=== PATIENT | female | born 1960 | race Caucasian/White ===

== ENCOUNTER 2024-07-12 09:06 | Emergency (ER) | payer BC, SELFPAY ==
[2024-07-12 09:15] VITALS: BP 156/104; PULSE 88; RESP 16; TEMP 36.7; O2SAT 99; BMI 29.0
--- NOTE | 2024-07-12 09:27 | ECG_ITS ---
APPROVED REPORT Exam: Resting ECG HR:67 bpm ECG Measurements Heart Rate 67 AXES NC 157 P 61 QRSd 86 QRS 61 QT 385 T 53 QTc 400 Conclusion Sinus rhythm Electronically signed by : SANDEEP JAIN, 07/13/2024 13:24:11
--- NOTE | 2024-07-12 09:43 | ED_ITS ---
Discharge Plan Disposition Patient Disposition: Home, Self-Care Prescriptions Prescriptions: New famotidine [Pepcid] 20 mg tablet 20 mg PO BID 42 Days Qty: 84 0RF No Action multivitamin [Multi-Vitamin] Tablet 1 tab PO DAILY lisinopril 10 mg Tablet 10 mg PO DAILY Referrals Follow up/Referrals: Reg Wan MD [Primary Care Provider] - See instructions Activity Restrictions/Add. Instructions Additional Instructions/Restrictions: Call your family doctor to establish care for this visit to the emergency department and schedule follow-up within 48 hours to ensure improvement. If you have any worsening of your condition or any other concerning signs or symptoms, return to the emergency department or your primary care doctor for further evaluation. Pepcid twice daily for 2-6 weeks. If you continue to have pain, talk to your family doctor about starting proton pump inhibitor and gastroenterology for upper endoscopy. Clinical Impressions Clinical Impression: Abdominal pain Instructions Patient Instructions: DI for Acute Abdominal Pain Print Language Print Language: Trinidadian Discharge ED Provider: Jameson Devi General Adult HPI General Chief complaint: Abdominal Pain Stated complaint: Abd Pain R side and back Time Seen by Provider: 07/12/24 09:19 Mode of Arrival: Ambulatory Source of Information: Patient Limitations: No Limitations Description of Symptoms (Recalled from ER Triage Doc. by RN): Pt. complains of right upper quadrant pain that radiates around to her back and shoulder. She states it has been on and off for the last 3 days. She rates the pain 6/10 and states it worsens with eating and drinking. She has tried antiacids and they have not provided any relief History of Present Illness HPI narrative: Please note that above description of symptoms, in this electronic medical record under categorization of recalled from ER triage doctor by RN are reflective of an initial nursing assessment, however, is not reflective of my full history and physical exam that was personally taken and clarified. Consequentially, this preceding description of symptoms, which may include the patient's categorized chief complaint in the EMR, do not reflect my personal clinical impression, and the ultimate description of history of present illness and patient stated complaints should be deferred to this section of the note. Unless stated otherwise or congruent with this section of the note, additional signs, symptoms, or incongruence should be interpreted as inaccurate with my clinical impression. Related Data Home Medications ?Medication ?Instructions ?Recorded ?Confirmed lisinopril 10 mg tablet 10 mg PO DAILY 07/12/24 07/12/24 multivitamin 1 tab PO DAILY 07/12/24 07/12/24 Previous Rx's ?Medication ?Instructions ?Recorded famotidine 20 mg tablet (Pepcid) 20 mg PO BID 6 weeks #84 tabs 07/12/24 Allergies Allergy/AdvReac Type Severity Reaction Status Date / Time Sulfa (Sulfonamide Allergy Verified 07/12/24 09:22 Antibiotics) [facility] Disclaimer: The information contained in this section may have been updated after the patient was seen, as this information can be updated by other users. Medical History (Updated 07/12/24 @ 12:28 by Jameson Devi MD) Arthritis Plantar fasciitis Hypertension Surgical History (Updated 07/12/24 @ 09:21 by Nathaly Vazquez RN) H/O arthroscopy of left knee History of section Family History (Updated 07/12/24 @ 09:21 by Nathaly Vazquez RN) Other No significant family history Social History (Updated 07/12/24 @ 09:21 by Nathaly Vazquez RN) Smoking Status: Never smoker alcohol intake: current current occupational status: employed Travel in the last 8 weeks: None ROS Obtained: Yes All systems reviewed & no additional complaints except as documented Physical Exam General General appearance: alert Head Head exam: atraumatic and normocephalic Eye Eye exam: Present normal appearance, PERRL and EOMI Neck Neck exam: Present normal inspection, full ROM and trachea midline Respiratory Respiratory exam: Absent respiratory distress, wheezes, stridor, accessory muscle use or prolonged expiratory phase Cardiovascular Cardiovascular exam: Present regular rate, normal rhythm and other (Pulses equal symmetric in upper and lower extremities) Abdominal Exam Abdominal exam: Present soft; Absent distention, tenderness, guarding, rebound, rigidity, Harvey's sign, Rovsing's sign, tenderness at McBurney's Point or pulsatile mass Extremities Exam Extremities exam: Absent edema Neurological Exam Neurological exam: Present alert, oriented X3 and CN II-XII intact; Absent motor sensory deficit Skin Skin exam: Present warm, dry and rash; Absent diaphoresis or erythema Medical Decision Making Medical Records Medical records reviewed: Yes I reviewed the patient's medical records. [place] Inquiry Pt receiving controlled substance: No [place] was queried for this patient: No Vital Signs: 07/12/24 09:15 07/12/24 10:00 07/12/24 11:40 Temperature 98.0 F Temperature Source Oral Pulse Rate 64 Pulse Rate [Right Brachial] 88 Respiratory Rate 16 Blood Pressure 171/85 H 131/81 Blood Pressure [Right Arm] 156/104 H Blood Pressure Mean 113 Blood Pressure Mean [Right Arm] 121 Blood Pressure Source [Right Arm] Automatic Cuff Blood Pressure Position [Right Arm] Sitting 02 Sat by Pulse Oximetry 99 99 Oxygen Delivery Method Room Air 07/12/24 12:00 Temperature Temperature Source Pulse Rate 62 Pulse Rate [Right Brachial] Respiratory Rate Blood Pressure 145/71 H Blood Pressure [Right Arm] Blood Pressure Mean Blood Pressure Mean [Right Arm] Blood Pressure Source [Right Arm] Blood Pressure Position [Right Arm] 02 Sat by Pulse Oximetry 100 Oxygen Delivery Method Lab Data Lab Results 07/12/24 09:25: WBC 3.9 L, RBC 4.71, Hgb 13.9, Hct 42.4, MCV 89.9, MCH 29.4, MCHC 32.7, RDW 13.9, Plt Count 182, MPV 8.4, Neut % (Auto) 60.4, Lymph % (Auto) 30.3, [place] % (Auto) 6.3, Eos % (Auto) 2.2, Baso % (Auto) 0.8, Neut # (Auto) 2.4, Lymph # (Auto) 1.2, [place] # (Auto) 0.3, Eos # (Auto) 0.1, Baso # (Auto) 0.0, Sodium 137, Potassium 3.8, Chloride 107, Carbon Dioxide 28, Anion Gap 5.8, BUN 15, Creatinine 0.70, Estimated Creat Clear 75, Estimated GFR 85, Est GFR ( Amer) 103, Glucose 111 H, Calcium 9.2, Total Bilirubin 0.7, AST 42 H, ALT 41, Alkaline Phosphatase 78, Troponin I < 0.01, Total Protein 6.9, Albumin 4.1, Globulin 2.8, Albumin/Globulin Ratio 1.5, Lipase 73 07/12/24 09:25 07/12/24 09:25 Orders (Tests/Meds): ED MEDICATIONS Generic Name Dose Route Start Last Admin Trade Name Freq PRN Reason Stop Dose Admin Sodium Chloride 8 ml 07/12/24 09:38 Sodium Chloride 0.9% 10ml Vial IV 08/11/24 09:37 NEEDED PRN dilute pepcid Sodium Chloride 10 ml 07/12/24 10:59 07/12/24 11:01 Sodium Chloride 0.9% 10ml Syr (Rad Only) IV 08/11/24 10:58 10 ml NEEDED PRN Administration Maintain IV Site Discontinued Medications Generic Name Dose Route Start Last Admin Trade Name Yen PRN Reason Stop Dose Admin Famotidine 20 mg 07/12/24 09:38 07/12/24 09:44 Famotidine 20mg/2ml Vial IV 07/12/24 09:39 20 mg ONCE ONE Administration Iopamidol 75 ml 07/12/24 10:59 07/12/24 11:01 Iopamidol-370 (76%);100ml Bottle IV 07/12/24 11:00 75 ml ONCE ONE Administration Ketorolac Tromethamine 15 mg 07/12/24 09:38 07/12/24 09:44 Ketorolac 30mg/Ml Vial IV 07/12/24 09:39 15 mg ONCE ONE Administration ORDERS Category Date Time Status CT abdomen pelvis w con Stat Cat Scan 07/12/24 10:53 Taken POCUS Point of Care (ER Only) Stat Exams 07/12/24 09:38 Completed CBC w/Auto Diff [Complete Blood Count Auto Diff] Stat Lab 07/12/24 09:25 Completed CMP [Comprehensive Metabolic Panel] Stat Lab 07/12/24 09:25 Completed Lipase Stat Lab 07/12/24 09:25 Completed Trop I [Troponin I] Stat Lab 07/12/24 09:25 Completed Troponin I Q3H Lab 07/12/24 12:45 Ordered Troponin I Q3H Lab 07/12/24 15:45 Ordered UA [Urinalysis and Microscopic] Stat Lab 07/12/24 11:40 Received EKG Request [ECG Request] Stat Y 07/12/24 09:38 Ordered Medical Decision Narrative: 64-year-old female history of hypertension presenting with epigastric pain. Patient states that she has been having right upper quadrant/epigastric pain in the last 3 days. It is associated with food. She states that every few bites of drinks she takes, she has epigastric/right upper quadrant pain that radiates backward to her right shoulder blade. Denies vomiting, but has been nauseated. No constipation, but has had looser stools than usual without blood, melena, or mucus. Made appointment with her production support engineer, cannot get in for about 8 weeks. She states that she has not been running fevers, had unintended weight loss, chest pain, shortness of breath, overlying skin changes or rash. She does note that she got the Shingrix vaccine last week and has had itching over the site enough that it actually woke her up from sleep last night. She did have shingles in this dermatologic distribution a few years ago after interpersonal stressor. History was obtained via conversation with patient. On arrival, patient hemodynamically stable, alert, oriented x4, appropriate, GCS 15, moving all extremities spontaneously, pupils equal and reactive to light. Full physical exam performed and significant for very well-appearing female who is in no acute distress. Cardiopulmonary exam within normal limits. Patient's abdomen soft, nontender, nondistended. Negative Harvey sign. Negative flank tenderness. No overlying skin changes. No right lower quadrant tenderness, unremarkable physical exam overall. Differential includes cholecystitis, gastritis, pancreatitis, nephrolithiasis, UTI, vaccine associated reaction, zoster, aortic pathology, among others. Patient placed on continuous cardiac monitoring and continuous pulse ox with initial blood pressure 156/104, heart rate 88, saturation 99% on room air. Independent interpretation of EKG shows sinus rhythm 67 beats a minute without ST or T wave changes concerning for acute ischemia. [place] 157, QRS 86, QTc 400. [place] normal.. Patient was given Toradol, Pepcid for symptomatic management and correction of underlying abnormalities. Workup independently interpreted and significant for nonactionable CBC or chemistry. Lipase negative. Troponin negative. Bedside [id number] ultrasound negative for any right upper quadrant pathology. Normal gallbladder. On independent interpretation of imaging, no acute intra-abdominal pathology. See radiology read for full review of final results. On reevaluation, patient's symptoms under control with Pepcid and Toradol. Given patient presentation, workup, history, this most likely represents PUD versus passed gallstone, among others. Because in no acute distress and very well-appearing, deemed appropriate for outpatient management with PCP follow-up. Because patient at baseline without signs or symptoms of clinical decompensation, deemed appropriate for discharge. Results were relayed to patient who voiced understanding and were agreeable to outpatient management and follow up. I discussed my clinical impression with patient and answered all questions. At this time, the evidence for any other entities in the differential is insufficient to warrant any further testing or ED observation. This was explained as well. Advisory was given that persistent or worsening symptoms require further evaluation. I confirmed the understanding of this discussion. Office Electrician disclaimer Much of this encounter note is an electronic assistant clinical director spoken language to printed text. Electronic assistant clinical director of the spoken language may permit errors. Although I have reviewed the note, some errors may still exist. Procedures Limited Ultrasound Indication:: Limited RUQ ultrasound Indication: Abdominal pain Identified structures: -Gallbladder -Gallbladder wall -Common bile duct -Liver Findings: Sonographic Harvey sign: Absent Gallstones: Absent Sludge: Absent Pericholecystic fluid: Absent Maximal GB wall thickness (mm) (normal is </= 3mm): Normal Common bile duct width (mm) (normal is </= 6mm): Normal Gallbladder width (cm) (normal is < 4cm): Normal Gallbladder length (cm) (normal is < 10cm): Normal Impression: Normal right upper quadrant ultrasound with normal gallbladder Images were saved to permanent archive The study was technically adequate CPT 53529-11 This study was performed by me, and I personally interpreted all images/videos. Based on my clinical judgement, these images were adequate and did not necessitate further ultrasound imaging. Critical Care Critical Care Time Critical Care Time: No
[2024-07-12] MEDS: KETOROLAC 30MG/ML VIAL 15 MG IV (09:44)
[2024-07-12] MEDS: FAMOTIDINE 20MG/2ML VIAL 20 MG IV (09:44)
[2024-07-12 09:45] LABS: Basophils % 0.8 % (0.1-2.0); Eosinophils # 0.1 K/mm3 (0.0-0.4); Eosinophils % 2.2 % (0.1-12.0); Hematocrit 42.4 % (37.0-47.0); Hemoglobin 13.9 g/dL (12.2-16.2); Lymphocytes # 1.2 K/mm3 (0.7-4.5); Lymphocytes % 30.3 % (10-50); Mean Corpuscular HGB Conc 32.7 g/dL (31.8-35.4); Mean Corpuscular Hemoglobin 29.4 pg (27.0-31.2); Mean Corpuscular Volume 89.9 fl (81-99); Mean Platelet Volume 8.4 fl (7.4-10.4); Monocytes # 0.3 K/mm3 (0.1-1.0); Monocytes % 6.3 % (1.7-9.3); Neutrophils # 2.4 K/mm3 (1.8-7.8); Neutrophils % 60.4 % (37.0-80.0); Platelet Count 182 K/mm3 (142-424); Red Blood Count 4.71 M/mm3 (4.20-5.40); Red Cell Distribution Width 13.9 % (11.5-17.5); White Blood Count 3.9 K/mm3 (4.8-10.8)
[2024-07-12 10:00] VITALS: BP 171/85
[2024-07-12 10:02] LABS: Alanine Aminotransferase 41 U/L (12-78); Albumin Level 4.1 g/dl (3.5-5.0); Albumin/Globulin Ratio 1.5 (1.1-1.8); Alkaline Phosphatase 78 U/L (38-126); Anion Gap 5.8 mEq/L (5-15); Aspartate Amino Transferase 42 U/L (14-36); Bilirubin,Total 0.7 mg/dl (0.2-1.3); Blood Urea Nitrogen 15 mg/dl (7-17); Calcium 9.2 mg/dl (8.4-10.2); Carbon Dioxide 28 mmol/L (22.0-30.0); Chloride 107 mmol/L (98-107); Creatinine Clearance Estimated 75 mL/min (50-200); Estimated Glomerular Filt Rate 85 ml/min (>60); GFR (African American) 103 ML/MIN (>60); Globulin 2.8 g/dL (1.3-3.2); Glucose 111 mg/dl (74-100); Lipase 73 U/L (23-300); Potassium 3.8 mmoL/L (3.5-5.1); Sodium 137 mmol/L (136-145); Total Protein,Serum 6.9 g/dl (6.3-8.2)
[2024-07-12 10:19] LABS: Troponin I < 0.01 ng/ml (0.00-0.034)
--- NOTE | 2024-07-12 10:53 | CT_ITS ---
FINAL REPORT TECHNIQUE: After the administration of intravenous contrast, axial images were obtained through the abdomen and pelvis by computed tomography. This study was performed with technique to keep radiation doses as low as reasonably achievable, (ALARA). Individualized dose reduction techniques using automated exposure control or adjustment of the MA and/or KV according to the patient's size were employed. CLINICAL HISTORY: RUQ pain to right shoulder pain, neg US FINDINGS: Abdomen: The lung bases are clear. The liver is normal in size and attenuation. The spleen and gallbladder are unremarkable. The adrenals are normal. The pancreas is unremarkable. The kidneys enhance appropriately. The aorta is normal in caliber. There is no free fluid or adenopathy. Pelvis: The appendix is normal. The urinary bladder is unremarkable. There is no free fluid or adenopathy. IMPRESSION: No acute intra-abdominal process. Reviewed, Interpreted and Dictated by Dwayne Elias III, MD Transcribed by Tatyana Mejía Authenticated and [facility]
[2024-07-12] MEDS: SODIUM CHLORIDE 0.9% 10ML SYR (RAD ONLY) 10 ML IV (11:01)
[2024-07-12] MEDS: IOPAMIDOL-370 (76%);100ML BOTTLE 75 ML IV (11:01)
[2024-07-12 11:40] VITALS: BP 131/81; PULSE 64; O2SAT 99
--- NOTE | 2024-07-12 11:42 | PC.NURSE ---
rounded on pt, no needs at this time
[2024-07-12 11:45] LABS: Microscopic, Urine URINE MICROSCOPIC (MICROSCOPIC)
[2024-07-12 12:00] VITALS: BP 145/71; PULSE 62; O2SAT 100
[2024-07-12 12:14] LABS: Appearance,Urine CLEAR (Clear); Bilirubin,Urine Negative (Negative); Blood, Urine Negative (Negative); Color,Urine YELLOW (Yellow); Glucose,Urine (UA) Negative (Negative); Ketones,Urine TRACE (Negative); Leukocyte Esterase,Urine Negative (Negative); Nitrate,Urine Negative (Negative); Protein,Urine Negative (Negative); Specific Gravity, Urine <= 1.005 (1.005-1.030); Urobilinogen,Urine 0.2 EU/dl (0.2)
[2024-07-12 12:36] VITALS: BP 144/71; PULSE 75; RESP 18; TEMP 36.7; O2SAT 98
[2024-07-12 12:58] LABS: Bacteria,Urine Trace /lpf; Squamous Epithelial Cell,Urine Occasional #/hpf (0-5); WBC,Urine Occasional #/hpf (0-3)
== END 2024-07-12 12:43 | disposition home or self-care (01) ==
PROVIDERS: Emergency Provider Emergency Medicine; PCP Internal Medicine
DX: R10.11 Right upper quadrant pain (principal); M54.9 Dorsalgia, unspecified; M25.511 Pain in right shoulder; I10 Essential (primary) hypertension
CPT/HCPCS: 74177; 80053; 81001; 83690; 84484; 85025; 93005; 96374; 96375; 99285; J1885; Q9967; S0028